=== PATIENT | male | born 1950 | race Caucasian/White ===

== ENCOUNTER → 2019-02-23 12:56 | Outpatient (CLI) | payer OTHER, SELFPAY | PROVIDERS: Visit Provider Physician Assistant | DX: R35.0 Frequency of micturition (principal) | CPT/HCPCS: 36415; G0103 ==

== ENCOUNTER 2019-05-06 16:41 | Emergency (ER) | payer OTHER, SELFPAY ==
[2019-05-06 16:45] VITALS: BP 141/90; PULSE 73; RESP 18; TEMP 36.5; O2SAT 100
[2019-05-06 17:46] LABS: Appearance Urine UA CLEAR; Bilirubin Urine UA NEGATIVE (NEGATIVE); Color Urine UA YELLOW; Glucose Urine UA NEGATIVE (Negative); Ketones Urine UA NEGATIVE (NEGATIVE); Leukocyte Esterase Urine UA TRACE (NEGATIVE); Nitrite Urine UA NEGATIVE (Negative); Occult Blood Urine UA TRACE-INTACT (Negative); Protein Urine UA NEGATIVE (Negative); Urobilinogen Urine UA 0.2 E.U./dL (0.2)
[2019-05-06 17:55] LABS: Amorphous Sediment Urine 1+; Bacteria Urine Moderate (10-30); Culture Indicated Urine Specimen Cultured; Mucus Urine 1+ (Negative); RBC Urine 0-1/HPF (0-5/HPF); Squamous Epithelial Cell Urine 0-1 /HPF (0-5/HPF); WBC Urine 10-30/HPF (0-5/HPF)
[2019-05-06 17:56] VITALS: BP 130/85; PULSE 58; RESP 16; O2SAT 100
--- NOTE | 2019-05-06 18:14 | ED_ITS ---
HPI - Male Genitourinary <RENEE Allen - Last Filed: 05/06/19 18:59> General Chief complaint: Urogenital-Male Stated complaint: DRAINED OF BLADDER Time Seen by Provider: 05/06/19 17:17 Source: patient and family Mode of arrival: ambulatory Limitations: no limitations History of Present Illness HPI Narrative: The patient is a 69-year-old male nonsmoker with history of BPH who presents with a chief complaint of acute urinary retention. He is sent from his PCP's office. He states he has not had a good urine and several days, and feels as though he is . Denies any fevers nausea vomiting or diarrhea. He denies any dysuria urgency or frequency recently. He states he is supposed to follow up with urologist. He denies any chest pain or shortness of breath. On triage the patient was bladder scanned and found to have over leader in his bladder, so a Velasquez catheter was inserted by nursing staff. Related Data Previous Rx's Medication Instructions Recorded tamsulosin 0.4 mg capsule 0.4 mg PO DAILY #90 cap 03/28/19 sulfamethoxazole-trimethoprim 1 tab PO BID #14 tab 05/06/19 Allergies Allergy/AdvReac Type Severity Reaction Status Date / Time No Known Drug Allergies Allergy Verified 05/06/19 14:44 Review of Systems <RENEE Allen - Last Filed: 05/06/19 18:59> Review of Systems GENERAL: Denies chills, fatigue, malaise, fever, sweats. HEENT: Denies sinus pain, ear pain, sore throat, difficulty swallowing, dizziness. RESPIRATORY: Denies dyspnea, cough, wheezing, hemoptysis, sputum. CARDIOVASCULAR: Denies chest pain, palpitations, orthopnea, edema, GASTROINTESTINAL: Denies nausea, vomiting, abdominal pain, diarrhea, constipation, melena. : See HPI MUSCULOSKELETAL: denies weakness, joint pain, or bony pain SKIN: Denies rash, skin lesions, or other NEUROLOGIC: Denies weakness, headache, numbness, change in speech, confusion, seizures, incoordination. PSYCHIATRIC: No concerning psychosocial issues. 12 point review of systems is negative except for those stated above PFSH <RENEE Allen - Last Filed: 05/06/19 18:59> Medical History BPH (benign prostatic hyperplasia) (Chronic) Hemorrhoid (Chronic) Skin cancer (Chronic) Skin problem (Chronic) Surgical History Anesthesia (Resolved) Knee joint replacement status (Resolved ~2012) Status post Mohs surgery (Resolved) Family History (Updated 04/29/19 @ 19:10 by Minnie Sams) Brother Lung cancer Sister Brain cancer Social History Smoking Status: Never smoker Family History Brother Lung cancer Sister Brain cancer Social History Smoking Status: Never smoker Exam <RENEE Allen - Last Filed: 05/06/19 18:59> Narrative Exam Narrative: GENERAL: This is a well-nourished, well-developed patient, no acute distress HEAD: Atraumatic. Normocephalic. No temporal or scalp tenderness. EYES: Pupils equal round and reactive. Extraocular motions intact. No scleral icterus. No injection or drainage. ENT: Nose without bleeding, purulent drainage or septal hematoma. Throat without erythema, tonsillar hypertrophy or exudate. Uvula midline. Airway patent. NECK: Trachea midline. No JVD or lymphadenopathy. Supple, nontender, no meningeal signs. CARDIOVASCULAR: Regular rate and rhythm without murmurs, gallops, or rubs. RESPIRATORY: Clear to auscultation. Breath sounds equal bilaterally. No wheezes, rales, or rhonchi. No cough. No increased respiratory effort. No accessory muscle use. GASTROINTESTINAL: Abdomen soft, non-tender, nondistended. No hepato- splenomegaly, or palpable masses. No guarding. Active bowel sounds all 4 quadrants. Velasquez catheter draining clear yellow urine. EXTREMITIES: No clubbing, cyanosis, or edema. No joint tenderness, effusion, or edema noted. BACK: Nontender without deformity or crepitance. No flank tenderness. NEURO: AOx3. SKIN: No rash or erythema. Initial Vital Signs Initial Vital Signs: Vital Signs Temperature 97.7 F 05/06/19 16:45 Pulse Rate 73 05/06/19 16:45 Respiratory Rate 18 05/06/19 16:45 Blood Pressure 141/90 H 05/06/19 16:45 Pulse Oximetry 100 05/06/19 16:45 <Charla Avelar DO - Last Filed: 05/07/19 07:51> Initial Vital Signs Initial Vital Signs: Vital Signs Temperature 97.7 F 05/06/19 16:45 Pulse Rate 73 05/06/19 16:45 Respiratory Rate 18 05/06/19 16:45 Blood Pressure 141/90 H 05/06/19 16:45 Pulse Oximetry 100 05/06/19 16:45 Course <RENEE Allen - Last Filed: 05/06/19 18:59> Orders Ordered: ED Orders 05/06/19 17:36 Urinalysis and Microscopic Stat Urine Culture Stat Vital Signs - 8 hr 05/06/19 16:45 05/06/19 17:56 Temperature 97.7 F Pulse Rate 73 58 L Respiratory Rate 18 16 Blood Pressure 141/90 H Blood Pressure [Left Arm] 130/85 Pulse Oximetry 100 100 <Charla Avelar DO - Last Filed: 05/07/19 07:51> Orders Ordered: ED Orders 05/06/19 17:36 Urinalysis and Microscopic Stat Urine Culture Stat Vital Signs - 8 hr 05/06/19 16:45 05/06/19 17:56 Temperature 97.7 F Pulse Rate 73 58 L Respiratory Rate 18 16 Blood Pressure 141/90 H Blood Pressure [Left Arm] 130/85 Pulse Oximetry 100 100 MDM - Male Genitourinary <RENEE Allen - Last Filed: 05/06/19 18:59> Lab Data Lab Results 05/06/19 Range/Units 17:36 Urine Color Yellow Urine Appearance Clear Urine pH 5.0 (4.5-8.0) Ur Specific Tillar 1.020 (1.000-1.035) Urine Protein Negative (Negative) Urine Glucose (UA) Negative (Negative) g/dL Urine Ketones Negative (NEGATIVE) Urine Occult Blood Trace-intact (Negative) Urine Nitrate Negative (Negative) Urine Bilirubin Negative (NEGATIVE) Urine Urobilinogen 0.2 (0.2) E.U./dL Ur Leukocyte Esterase Trace H (NEGATIVE) Urine RBC 0-1/hpf (0-5/HPF) Urine WBC 10-30/hpf H (0-5/HPF) Ur Squamous Epith Cells 0-1 /hpf (0-5/HPF) Amorphous Sediment 1+ Urine Bacteria Moderate (10-30) H (None) Urine Mucus 1+ H (Negative) Ur Culture Indicated? Specimen cultured MDM Narrative Medical decision making narrative: The patient is a 69-year-old male who presents with a chief complaint of acute urinary retention. A bladder scan for over 1 L. A Velasquez catheter was inserted he put out over 2 L of urine immediately. Given that the patient has had slight flank pain, I offered to do labs. The patient's declined lab work. The patient does have some leukocyte esterase and bacteria in his urine, so initiate antibiotic therapy with a pending urine culture. The patient denies any abdominal pain after his Velasquez was inserted and does not have any fever vomiting or diarrhea. He is afebrile and has no signs of systemic illness. He is nontoxic and well- appearing. Patient was given Velasquez catheter teaching. 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 The plan is to follow up with her PCP as well as urology. No questions or concerns upon discharge. Discussed coming back to the ER for any acute concerns such as and we keep down fluids. No questions or concerns upon discharge. <Charla Avelar, - Last Filed: 05/07/19 07:51> Lab Data Lab Results 05/06/19 Range/Units 17:36 Urine Color Yellow Urine Appearance Clear Urine pH 5.0 (4.5-8.0) Ur Specific Tillar 1.020 (1.000-1.035) Urine Protein Negative (Negative) Urine Glucose (UA) Negative (Negative) g/dL Urine Ketones Negative (NEGATIVE) Urine Occult Blood Trace-intact (Negative) Urine Nitrate Negative (Negative) Urine Bilirubin Negative (NEGATIVE) Urine Urobilinogen 0.2 (0.2) E.U./dL Ur Leukocyte Esterase Trace H (NEGATIVE) Urine RBC 0-1/hpf (0-5/HPF) Urine WBC 10-30/hpf H (0-5/HPF) Ur Squamous Epith Cells 0-1 /hpf (0-5/HPF) Amorphous Sediment 1+ Urine Bacteria Moderate (10-30) H (None) Urine Mucus 1+ H (Negative) Ur Culture Indicated? Specimen cultured Discharge Plan Departure Patient Disposition: Home Clinical Impression: Acute urinary retention, Acute UTI Discharge Date/Time: 05/06/19 18:22 Interventions: ED Discharge Assessment Last Done: 05/06/19 18:21 Instructions: DI for Urinary Tract Infection (UTI), DI for Urinary Retention in Men Activity Restrictions/Additional Instructions: Today you came to the emergency department for acute urinary retention. We placed a Velasquez catheter which drained over 2 L of urine immediately we have given you instructions regarding Care Velasquez catheter. Please follow up with your PCP as well as Urology as planned. We have elected to start antibiotic therapy for urinary tract infection. Please monitor for fever, inability keep down fluids and flank pain. Please come back to emergency department for any acute concerns. Prescriptions: New sulfamethoxazole-trimethoprim 800-160 mg tablet 1 tab PO BID Qty: 14 RF: 0 No Action tamsulosin 0.4 mg capsule 0.4 mg PO DAILY Qty: 90 RF: 3 Referrals: Shelbi Gamez MD [Primary Care Provider] - <Charla Avelar DO - Last Filed: 05/07/19 07:51> Cosign ED Attending Gilature Attestation: I was immediately available in the department for consultation. Documentation has been reviewed. I agree with assessment and plan.
--- NOTE | 2019-05-06 18:24 | PC.NURSE ---
Urinary catheter teaching done. Sent home with leg bag and supplies to care for these devices.
== END 2019-05-06 18:22 | disposition home or self-care (01) ==
PROVIDERS: Emergency Provider Nurse Practitioner Family; PCP Hospitalist
DX: N39.0 Urinary tract infection, site not specified (principal); R33.8 Other retention of urine
CPT/HCPCS: 51701; 81001; 87086; 99283

== ENCOUNTER → 2019-06-18 10:22 | Outpatient (CLI) | payer OTHER, SELFPAY ==
[2019-06-18 11:07] LABS: BUN Creatinine Ratio 22.9 (6-22); Blood Urea Nitrogen 16 mg/dL (9-20); Calcium 9.4 mg/dL (8.4-10.2); Carbon Dioxide 32 mmol/L (22-32); Chloride 101 mmol/L (98-107); Estimated Glomerular Filt Rate > 60.0 mL/min (>60); Glucose 95 mg/dL (80-110); HEMOLYSIS < 15 (0-50); Potassium 4.4 mmol/L (3.4-5.1); Sodium 138 mmol/L (137-145)
[2019-06-18 11:34] LABS: Prostate Specific Antigen 7.42 ng/mL (0.10-4.00)
== END ==
PROVIDERS: PCP Hospitalist; Visit Provider Urology
DX: R97.20 Elevated prostate specific antigen [PSA] (principal); R33.9 Retention of urine, unspecified
CPT/HCPCS: 36415; 80048; 84153

== ENCOUNTER → 2019-08-26 09:39 | Outpatient (CLI) | payer OTHER, SELFPAY ==
[2019-08-26 11:09] LABS: Prostate Specific Antigen 2.68 ng/mL (0.10-4.00)
== END ==
PROVIDERS: Family Provider Hospitalist; PCP Hospitalist; Visit Provider Urology
DX: R97.20 Elevated prostate specific antigen [PSA] (principal)
CPT/HCPCS: 36415; 84153

== ENCOUNTER → 2019-11-17 13:26 | Outpatient (CLI) | payer OTHER, SELFPAY ==
--- NOTE | 2019-11-17 | DI.MRI.S_ITS ---
PROCEDURE: MR FEMUR LT WO CON INDICATIONS: Strain of muscle, fascia and tendon TECHNIQUE: Noncontrast coronal and sagittal T1 spin echo and STIR; axial T1 spin echo and T2 fast spin echo with fat saturation through the left thigh. COMPARISON: None. FINDINGS: Image quality: Excellent. Bones: Mildly heterogeneous marrow signal is seen throughout bony pelvis and bilateral femur suggestive of hematopoietic marrow. No gross marrow edema. No fracture or dislocation. Bilateral hip joint osteophytic changes are seen with superior joint space narrowing and subchondral sclerosis. No evidence of avascular necrosis of femoral head. The overlying cortex appears intact. No fractures lines or intra-osseous lesions. Soft tissues: There is tendinosis/low-grade partial-thickness tear involving left gluteus medius and minimus tendons at their insertion on greater trochanter without associated muscle signal abnormality. There is full thickness rupture involving hamstring tendon origins at their insertion on ischial tuberosity with approximately 7 mm distal retraction of torn tendon fibers and moderate amount of surrounding fluid and edema. Low-grade strain/partial thickness tear involving proximal hamstring muscles are also noted near musculotendinous junction. No other muscle or tendon signal abnormality. IMPRESSION: 1. Full-thickness rupture involving hamstring tendon origins at ischial tuberosity with 7 mm distal retraction of torn tendon fibers and surrounding soft tissue edema and fluid. There is straightening/low-grade partial-thickness tear involving proximal hamstring muscles near musculotendinous junction. 2. Low-grade tendinosis/partial thickness tear involving left gluteus medius and minimus tendons at the insertion on greater trochanter. No associated muscle signal abnormality. 3. Mild bilateral hip joint osteoarthritic changes. No hip fracture or dislocation. No evidence of avascular necrosis of femoral head. Heterogeneous marrow signal throughout bony pelvis and bilateral femur likely represent hematopoietic marrow. No gross marrow edema is seen. Dictated by: Jesus Garcia M.D. on 11/18/2019 at 10:39 Approved by: Jesus Garcia M.D. on 11/18/2019 at 10:46
== END ==
PROVIDERS: Referring Provider Orthopaedic Surgery; Visit Provider Orthopaedic Surgery
DX: S76.312A Strain of muscle, fascia and tendon of the posterior muscle group at thigh level, left thigh, initial encounter (principal); X58.XXXA Exposure to other specified factors, initial encounter
CPT/HCPCS: 73718

== ENCOUNTER → 2020-10-07 09:32 | Outpatient (CLI) | payer OTHER, SELFPAY ==
[2020-10-07 11:02] LABS: Add Manual Diff / Slide Review NO; Basophils Absolute Auto 100 /uL (0-100); Basophils Percent Auto 1.2 % (0-2); Eosinophils Absolute Auto 400 /uL (0-450); Hematocrit 44.5 % (41-53); Hemoglobin 14.6 g/dL (13.5-17.5); Lymphocytes Absolute Auto 1800 /uL (1100-4500); Lymphocytes Percent Auto 33.3 % (25-40); Mean Corpuscular HGB Conc 32.7 % (30-36); Mean Corpuscular Hemoglobin 27.8 PG (26-34); Mean Corpuscular Volume 84.9 fL (80-100); Monocytes Absolute Auto 500 /uL (0-900); Neutrophils Absolute Auto 2700 /uL (1500-7000); Neutrophils Percent Auto 49.5 % (50-75); Platelet Count 235 X10^3/uL (150-400); Red Blood Cell Count 5.25 X10^6/uL (4.5-5.9); Red Cell Distribution Width 14.4 % (11.6-14.8); White Blood Cell Count 5.5 X10^3/uL (4.5-11.0)
[2020-10-07 11:13] LABS: Alanine Aminotransferase 20 IU/L (<50); Albumin 4.1 g/dL (3.5-5.0); Albumin Globulin Ratio 1.5 (1.0-2.8); Alkaline Phosphatase 75 U/L (38-126); Aspartate Aminotransferase 30 IU/L (17-59); BUN Creatinine Ratio 24.2 (6-22); Bilirubin Total 0.4 mg/dL (0.2-1.3); Blood Urea Nitrogen 15 mg/dL (9-20); Carbon Dioxide 29 mmol/L (22-32); Chloride 104 mmol/L (98-107); Cholesterol 172 mg/dL (140-199); Estimated Glomerular Filt Rate > 60.0 mL/min (>60); Globulin 2.7 g/dL (1.7-4.1); Glucose 98 mg/dL (80-110); HDL Cholesterol 68 mg/dL (40-60); HEMOLYSIS 40 (0-50); LDL Cholesterol Calculated 67 mg/dL (<100); Potassium 4.5 mmol/L (3.4-5.1); Sodium 137 mmol/L (137-145); Total Protein 6.8 g/dL (6.3-8.2); Triglycerides 184 mg/dL (35-150)
[2020-10-07 11:43] LABS: Prostate Specific Antigen Scrn 1.61 ng/mL (0.1-4.0)
[2020-10-07 11:44] LABS: TSH w/ Reflex to FT4 1.62 uIU/mL (0.47-4.68)
== END ==
PROVIDERS: PCP Family Medicine; Referring Provider Family Medicine; Visit Provider Family Medicine
DX: Z00.00 Encounter for general adult medical examination without abnormal findings (principal); N40.0 Benign prostatic hyperplasia without lower urinary tract symptoms; Z13.220 Encounter for screening for lipoid disorders; Z13.228 Encounter for screening for other metabolic disorders; Z13.29 Encounter for screening for other suspected endocrine disorder; Z90.79 Acquired absence of other genital organ(s); Z12.5 Encounter for screening for malignant neoplasm of prostate
CPT/HCPCS: 36415; 80053; 80061; 84443; 85025; G0103

== ENCOUNTER → 2020-12-02 12:24 | Outpatient (CLI) | payer OTHER, SELFPAY ==
--- NOTE | 2020-12-02 12:26 | DI.US.S_ITS ---
PROCEDURE: US RENAL COMPLETE INDICATIONS: URINARY RETENTION POST TURP 1 YEAR AGO TECHNIQUE: Real-time scanning was performed of the kidneys and bladder, with image documentation. COMPARISON: None. FINDINGS: Kidneys: Kidneys are normal in size. Right kidney measures 11.7 cm long; left kidney measures 12.1 cm long. Right renal cortical thickness is 2.4 cm; left renal cortical thickness is 1.7 cm. Renal cortical echotexture is normal. No hydronephrosis or nephrolithiasis. No suspicious solid mass lesions. Bladder: Pre-void bladder volume is 588 mL. Post-void residual is 471 mL. Pre-void images demonstrate no intraluminal masses or stones. On pre-void images, neither of the ureteral jets are noted with color Doppler interrogation. (Of note, ureteral jets may not be detectable in up to 25% of cases due to insufficient differences in specific gravity between ureteral and bladder urine). Miscellaneous: No free pelvic fluid. IMPRESSION: No hydronephrosis 471 cc postvoid residual Dictated by: David Rios M.D. on 12/02/2020 at 15:10 Approved by: David Rios M.D. on 12/02/2020 at 15:13
== END ==
PROVIDERS: PCP Family Medicine; Referring Provider Urology; Visit Provider Urology
DX: R33.9 Retention of urine, unspecified (principal)
CPT/HCPCS: 76770

== ENCOUNTER → 2021-07-29 09:36 | Outpatient (CLI) | payer OTHER, SELFPAY ==
[2021-07-29 10:17] LABS: COVID19 -Nasal RAPID Negative (Negative)
== END ==
PROVIDERS: PCP Family Medicine; Visit Provider Nurse Practitioner Family
DX: Z20.822 Contact with and (suspected) exposure to COVID-19 (principal)
CPT/HCPCS: 87635

== ENCOUNTER → 2021-08-23 14:52 | Outpatient (CLI) | payer OTHER, SELFPAY ==
[2021-08-23 15:50] LABS: COVID19 -Nasal RAPID Negative (Negative)
== END ==
PROVIDERS: PCP Family Medicine; Referring Provider Nurse Practitioner Family; Visit Provider Nurse Practitioner Family
DX: Z20.822 Contact with and (suspected) exposure to COVID-19 (principal)
CPT/HCPCS: 87635

== ENCOUNTER 2021-08-24 11:34 | Day surgery (SDC) | payer OTHER, SELFPAY ==
--- NOTE | 2021-08-24 | PATH_ITS ---
[facility] Accession Number: [id number] . 01 Material submitted: . PART A: colon - ASCENDING COLON POLYP PART B: rectum - RECTAL POLYP . 02 Diagnosis: A. Ascending Colon Polyp: Tubular adenoma. . B. Rectal Polyp: Hyperplastic polyp. MRV 08/26/2021 0914 Local . 02 Electronically signed: . Marielena Saenz MD, Pathologist NPI- [id number] . 01 Gross description: . Part A: ASCENDING COLON POLYP: Received in formalin is 1 fragment(s) of mcguire, soft tissue measuring 0.4 x 0.4 x 0.4 cm submitted entirely in 1 cassette(s) Part B: RECTAL POLYP: Received in formalin is 1 fragment(s) of mcguire, soft tissue measuring 0.4 x 0.4 x 0.3 cm submitted entirely in 1 cassette(s) /QBJ 08/25/2021 0251 Local . 02 Pathologist provided ICD-10: K63.5, Z86.010 . 02 CPT . 676586, 191563 Performed at: 01 [facility] [address], [place], [place] [id number] MD Jd Melton MD Phone: [phone] Performed at: 02 [facility] [address] [place], [place] [id number] MD Astrid Chahal MD Phone: [phone]
[2021-08-24 12:38] VITALS: BP 151/86; PULSE 65; RESP 16; TEMP 36.6; O2SAT 99; BMI 28.3
[2021-08-24] MEDS: SODIUM CHLORIDE 0.9% 1,000 ML 84 ML IV (12:57)
--- NOTE | 2021-08-24 13:46 | PM.HP.1 ---
History of Present Illness History of Present Illness Date Patient Seen: 08/24/21 Time Patient Seen: 13:46 Chief complaint: SDC Narrative: Personal history of colon polyps Patient History Medical History Basal cell carcinoma BPH (benign prostatic hyperplasia) Hemorrhoid Left hamstring injury Skin cancer Skin problem Urinary retention due to benign prostatic hyperplasia Well adult exam Surgical History Anesthesia Knee joint replacement status (~2012) S/P TURP (transurethral resection of prostate) Status post Mohs surgery Family & Social History Family History Brother Lung cancer Sister Brain cancer Social History: household members spouse Tobacco & Substance use: Smoking Status Never smoker alcohol intake frequency 0-2 drinks per day Substance Use Type does not use Meds Home Medications and Allergies Home Medications Medication Instructions Recorded Confirmed Type cetirizine 10 mg tablet (Allergy 10 mg PO DAILY PRN tab 10/07/20 08/24/21 History Relief (cetirizine)) Allergies Allergy/AdvReac Type Severity Reaction Status Date / Time No Known Drug Allergies Allergy Verified 08/24/21 12:29 Review of Systems Review of Systems ROS: Yes All systems reviewed with the patient and are negative except as otherwise documented Exam Vital Signs (past 8 hours): - 08/24/21 12:38 Temperature 97.8 F Pulse Rate 65 Respiratory Rate 16 Blood Pressure 151/86 H Pulse Oximetry 99 Oxygen Delivery Method Room Air Const General: cooperative and comfortable Orientation: alert HENMT Head: normocephalic Ears: external ears normal Nose: external nose normal Face and sinus: normal facial exam Mouth: oral mucosae normal Eyes General: appearance normal, both eyes and all related structures Neck Neck: normal visual inspection Chest Chest: normal inspection of the chest Resp Effort & Inspection: normal respiratory effort Cardio Rate: regular rate GI Inspection: normal to inspection Skin General: no rashes or lesions noted and No jaundice Neuro General: patient alert and moves all extremities Cognition: normal cognition Speech: speech normal Extrem General: no pedal edema Psych Appearance: grossly normal Assessment & Plan Assessment & Plan narrative: 71-year-old male with a personal history of colon polyps. Colonoscopy is planned for today. Time Spent With Patient Critical Care time: I spent a total of [] minutes of critical care time on this patient's care today; this time is exclusive of procedural time.
--- NOTE | 2021-08-24 13:48 | PM.PREOP ---
Pre-operative Note COVID-19 COVID-19 status: Negative Result date/Date tested (Pos, Neg/Pending): 08/23/21 Interval Note History & Physical reviewed/Exam performed by Physician: Yes Changes to H&P: No H&P completed within 30 days and has changed as indicated here:: Today ASA Class (for procedural sedation): I
--- NOTE | 2021-08-24 14:41 | P.OP.COLON_ITS ---
Operative Date/Time/Diagnoses Date of procedure: 08/24/21 Time of procedure: 14:41 Pre-op diagnosis: Polyp history Post-op diagnosis: same Procedure & Clinicians Study performed: Colonoscopy with hot snare polypectomy Same procedure as scheduled: Yes Indications: Polyp history Surgeon: Hossein Abad Procedure Notes SCOAP/Timeout: Done Procedure in detail: After the risks and benefits were explained, written and verbal informed consent was obtained. The patient was brought into the procedure room and placed into the left lateral decubitus position. Please see nurse kayaking instructor notes for sedation details. Digital rectal examination was accomplished. The scope was introduced into the patient and advanced under direct visualization to the cecum as identified by the appendiceal orifice and ileocecal valve. The scope was slowly withdrawn to carefully examine the mucosa for any defects or lesions. Comprehensive imaging was accomplished throughout the rectum including the dentate line. The colon was decompressed, the scope was then removed from the patient who tolerated the procedure well. Bowel prep adequate Adult colonoscope Scope withdrawal time: 10 minutes Sedation minutes: 17 Complications: none Impression: In the ascending colon there was an approximately 7 mm polyp removed with hot snare. In the rectum there was an approximately 6 mm polyp also removed with hot snare. No additional pathology was appreciated throughout. Patient had at least grade 2 internal hemorrhoids. Endoscopic diagnosis 1. Grade 2 hemorrhoids 2. Colon polyps Post-procedure Recommendations: Colonoscopy in 5 years Plan for aftercare: 1. Await histopathology 2. Repeat colonoscopy 5 years. Disposition: PACU
[2021-08-24 14:44] VITALS: BP 119/84; PULSE 74; RESP 13; TEMP 36.7; O2SAT 99
[2021-08-24 14:49] VITALS: BP 123/73; PULSE 71; RESP 13; O2SAT 100
[2021-08-24 14:53] VITALS: BP 135/92; PULSE 70; RESP 12; O2SAT 99
[2021-08-24 15:01] VITALS: BP 142/86; PULSE 65; RESP 13; O2SAT 98
== END 2021-08-24 15:13 | disposition home or self-care (01) ==
PROVIDERS: PCP Family Medicine; Referring Provider Internal Medicine Gastroenterology; Visit Provider Internal Medicine Gastroenterology
PROC: 0DJD8ZZ Inspection of Lower Intestinal Tract, Via Natural or Artificial Opening Endoscopic (ICD-10-PCS; CPT 45378; principal; 2021-08-24 13:30)
DX: Z12.11 Encounter for screening for malignant neoplasm of colon (principal); D12.2 Benign neoplasm of ascending colon; Z86.010 Personal history of colon polyps; K64.1 Second degree hemorrhoids; K62.1 Rectal polyp
CPT/HCPCS: 45385; J2704

== ENCOUNTER → 2022-05-13 16:13 | Outpatient (CLI) | payer OTHER, SELFPAY ==
[2022-05-13 16:31] LABS: Add Manual Diff / Slide Review NO; Basophils Absolute Auto 100 /uL (0-100); Basophils Percent Auto 0.9 % (0-2); Eosinophils Absolute Auto 200 /uL (0-450); Eosinophils Percent Auto 2.4 % (2-4); Hematocrit 41.9 % (41-53); Hemoglobin 14.2 g/dL (13.5-17.5); Lymphocytes Absolute Auto 2100 /uL (1100-4500); Lymphocytes Percent Auto 31.8 % (25-40); Mean Corpuscular HGB Conc 33.9 % (30-36); Mean Corpuscular Hemoglobin 27.8 PG (26-34); Monocytes Absolute Auto 600 /uL (0-900); Monocytes Percent Auto 9.2 % (3-14); Neutrophils Absolute Auto 3600 /uL (1500-7000); Neutrophils Percent Auto 55.7 % (50-75); Platelet Count 268 X10^3/uL (150-400); Red Cell Distribution Width 14.6 % (11.6-14.8); White Blood Cell Count 6.5 X10^3/uL (4.5-11.0)
[2022-05-13 16:42] LABS: Alanine Aminotransferase 16 IU/L (<50); Albumin Globulin Ratio 1.3 (1.0-2.8); Alkaline Phosphatase 74 U/L (38-126); Aspartate Aminotransferase 24 IU/L (17-59); BUN Creatinine Ratio 19.3 (6-22); Bilirubin Total 0.3 mg/dL (0.2-1.3); Blood Urea Nitrogen 16 mg/dL (9-20); Calcium 8.8 mg/dL (8.4-10.2); Carbon Dioxide 29 mmol/L (22-32); Chloride 105 mmol/L (98-107); Estimated Glomerular Filt Rate > 60 mL/min (>60); Globulin 3.1 g/dL (1.7-4.1); Glucose 104 mg/dL (80-110); HEMOLYSIS < 15 (0-50); Potassium 4.2 mmol/L (3.4-5.1); Sodium 138 mmol/L (137-145); Total Protein 7.1 g/dL (6.3-8.2)
[2022-05-13 17:15] LABS: TSH w/ Reflex to FT4 1.16 uIU/mL (0.47-4.68)
[2022-05-13 17:31] LABS: Vitamin B12 363 pg/mL (239-931)
== END ==
PROVIDERS: PCP Family Medicine; Referring Provider Family Medicine; Visit Provider Family Medicine
DX: R42 Dizziness and giddiness (principal)
CPT/HCPCS: 80053; 82607; 84443; 85025

== ENCOUNTER → 2022-05-17 08:16 | Outpatient (CLI) | payer OTHER, SELFPAY ==
--- NOTE | 2022-05-17 08:21 | DI.MRI.S_ITS ---
PROCEDURE: MR HEAD/BRAIN WO CON INDICATIONS: The patient has developed rather substantial ataxia without TECHNIQUE: Non-contrast axial T1 spin echo, axial T2 fast spin echo, sagittal and axial FLAIR, coronal T2 fast spin echo, axial gradient echo, axial diffusion and ADC through the brain. COMPARISON: None. FINDINGS: Image quality: Excellent. CSF spaces: Ventricles appear symmetric in size and shape. Basal cisterns are patent. No extra-axial fluid collections. Brain: No intracranial bleeds or mass effects. There is cerebral volume loss for age. There are periventricular and deep white matter chronic small vessel ischemic changes. Brainstem appears normal. Diffusion-weighted images show no acute ischemic insults. No chronic ischemic insults. Normal intravascular flow voids are present. Skull and face: Calvarial bone marrow is normal in signal. Orbits are normal. Sinuses: There is moderate mucosal thickening seen within the left maxillary sinus, with [id number] mucosal thickening elsewhere within the paranasal sinuses. No abnormal fluid is seen within the mastoid air cells. IMPRESSION: No imaging explanation is found for this patient's presenting symptoms. No findings of acute or subacute infarction can be seen. Note is made of age-appropriate brain parenchymal volume loss and chronic small vessel ischemic changes. Dictated by: Douglas Turner M.D. on 05/17/2022 at 8:45 Approved by: Douglas Turner M.D. on 05/17/2022 at 8:46
== END ==
PROVIDERS: PCP Family Medicine; Referring Provider Family Medicine; Visit Provider Family Medicine
DX: R27.0 Ataxia, unspecified (principal)
CPT/HCPCS: 70551

== ENCOUNTER → 2022-05-23 09:09 | Outpatient (CLI) | payer OTHER, SELFPAY | PROVIDERS: PCP Family Medicine; Visit Provider Nurse Practitioner Family | DX: R30.0 Dysuria (principal) | CPT/HCPCS: 87077; 87086; 87186 ==

== ENCOUNTER 2022-09-02 11:38 | Emergency (ER) | payer OTHER, SELFPAY ==
[2022-09-02 11:55] VITALS: BP 126/91; PULSE 64; RESP 16; TEMP 36.7; O2SAT 98; BMI 40.2
--- NOTE | 2022-09-02 12:23 | DI.CT.S_ITS ---
PROCEDURE: CT CERVICAL SPINE WO CON INDICATIONS: trauma TECHNIQUE: Noncontrast 3 mm thick sections acquired from the skull base to the T4 level. Sagittal and coronal reformats were then constructed. For radiation dose reduction, the following was used: automated exposure control, adjustment of mA and/or kV according to patient size. COMPARISON: None. FINDINGS: Image quality: Excellent. Bones: No fractures or dislocations. Visualized superior ribs are intact. Trace anterolisthesis of C7 on T1 secondary to bilateral facet arthropathy. Multilevel facet arthropathy. Soft tissues: Prevertebral soft tissues are normal in thickness. No paravertebral hematomas. No apical pneumothoraces. IMPRESSION: No evidence acute cervical fracture or dislocation. Cervical spondylitic change. Dictated by: Christopher Andre M.D. on 09/02/2022 at 12:59 Approved by: Christopher Andre M.D. on 09/02/2022 at 13:01
--- NOTE | 2022-09-02 12:23 | DI.RAD.S_ITS ---
PROCEDURE: XR CHEST 1V INDICATIONS: trauma TECHNIQUE: One view of the chest was acquired. COMPARISON: None. FINDINGS: Surgical changes and devices: None. Lungs and pleura: Lungs are clear. No pleural effusions or pneumothorax. Mediastinum: Mediastinal contours appear normal. Heart size is normal. Bones and chest wall: No suspicious bony lesions. Overlying soft tissues appear unremarkable. IMPRESSION: No evidence acute pulmonary process. Dictated by: Christopher Andre M.D. on 09/02/2022 at 12:49 Approved by: Christopher Andre M.D. on 09/02/2022 at 12:49
--- NOTE | 2022-09-02 12:23 | DI.CT.S_ITS ---
PROCEDURE: CT HEAD/BRAIN WO CON INDICATIONS: trauma TECHNIQUE: Noncontrast 4.5 mm thick angled axial sections acquired from the foramen magnum to the vertex, with coronal and sagittal reformats. For radiation dose reduction, the following was used: automated exposure control, adjustment of mA and/or kV according to patient size. COMPARISON: None. FINDINGS: Image quality: Excellent. CSF spaces: Basal cisterns are patent. No extra-axial fluid collections. Ventricles are normal in size and shape. Brain: No midline shift. No intracranial masses or hemorrhage. Fernandes-white matter interface is normal. Skull and face: Calvarium and visualized facial bones are intact, without suspicious lesions. Sinuses: Visualized sinuses and mastoids are clear. IMPRESSION: No evidence acute intracranial process. Dictated by: Christopher Andre M.D. on 09/02/2022 at 13:01 Approved by: Christopher Andre M.D. on 09/02/2022 at 13:02
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
== END 2022-09-02 13:21 | disposition home or self-care (01) ==
PROVIDERS: Emergency Provider Emergency Medicine; PCP Family Medicine
DX: M54.2 Cervicalgia (principal); S09.90XA Unspecified injury of head, initial encounter; V89.2XXA Person injured in unspecified motor-vehicle accident, traffic, initial encounter
CPT/HCPCS: 70450; 71045; 72125; 99281; 99284

== ENCOUNTER → 2022-09-23 14:02 | Outpatient (CLI) | payer OTHER, SELFPAY ==
--- NOTE | 2022-09-23 | DI.US.S_ITS ---
PROCEDURE: US RENAL COMPLETE INDICATIONS: URINARY RETENTION TECHNIQUE: Real-time scanning was performed of the kidneys and bladder, with image documentation. COMPARISON: [facility], , US RENAL COMPLETE, 12/02/2020, 13:04. FINDINGS: Kidneys: Kidneys are normal in size. Right kidney measures 12 cm long; left kidney measures 11.9 cm long. Right renal cortical thickness is 1.1 cm; left renal cortical thickness is 1.7 cm. Renal cortical echotexture is normal. No hydronephrosis or nephrolithiasis. No suspicious solid mass lesions. Bladder: Pre-void bladder volume is 706 mL. Post-void residual is 486 mL. Pre-void images demonstrate no intraluminal masses or stones. On pre-void images, bilateral ureteral jets are noted with color Doppler interrogation. (Of note, ureteral jets may not be detectable in up to 25% of cases due to insufficient differences in specific gravity between ureteral and bladder urine). Miscellaneous: No free pelvic fluid. IMPRESSION: 1. Grossly unremarkable appearance of the kidneys bilaterally and no hydronephrosis seen. 2. 486 cc postvoid residual. Dictated by: Chris Ferguson [facility] Interpreted: Ashish Lott MD on 09/23/2022 at 15:52 Transcribed by: SAMI on 09/23/2022 at 15:53 Approved by: Ashish Lott M.D. on 09/23/2022 at 17:53
== END ==
PROVIDERS: PCP Family Medicine; Referring Provider Physician Assistant Medical; Visit Provider Physician Assistant Medical
DX: R33.9 Retention of urine, unspecified (principal)
CPT/HCPCS: 76770

== ENCOUNTER → 2023-11-26 14:42 | Outpatient (CLI) | payer MEDICARE, SELFPAY ==
--- NOTE | 2023-11-26 14:43 | DI.RAD.S_ITS ---
PROCEDURE: XR CHEST 2V INDICATIONS: Cough and short of breath TECHNIQUE: 2 views of the chest were acquired. COMPARISON: [facility], CR, XR CHEST 1V, 09/02/2022, 12:23. FINDINGS: Surgical changes and devices: None. Lungs and pleura: Mild generalized interstitial prominence can be seen. No pleural effusions or pneumothorax. Low lung volumes are noted. This causes a crowded appearance to the lung markings and limits evaluation. Mediastinum: The cardiac contours are within normal limits. The aorta demonstrates calcification and tortuosity. Bones and chest wall: Age-appropriate bony degenerative changes are seen. Accentuated thoracic kyphosis is seen. No suspicious bony abnormalities. Soft tissues appear unremarkable. IMPRESSION: Mild generalized interstitial prominence can be seen, without cardiomegaly. Please consider pulmonary edema versus atypical infiltrate. (In this patient with low lung volumes, differential diagnosis also includes artifact.) Dictated by: Douglas Turner M.D. on 11/26/2023 at 14:09 Approved by: Douglas Turner M.D. on 11/26/2023 at 14:10
== END ==
PROVIDERS: PCP Family Medicine; Referring Provider Physician Assistant Medical; Visit Provider Physician Assistant Medical
DX: R05.9 Cough, unspecified (principal)
CPT/HCPCS: 71046

== ENCOUNTER → 2024-04-16 14:41 | Outpatient (CLI) | payer MEDICARE, SELFPAY ==
--- NOTE | 2024-04-16 14:42 | DI.RAD.S_ITS ---
PROCEDURE: XR KNEE LT 3V INDICATIONS: Left knee pain and swelling; suspect OA TECHNIQUE: 3 views of the knee were acquired. COMPARISON: None. FINDINGS: Bones: There is prior right total knee arthroplasty with anatomic right knee alignment. 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 No patellar subluxation. No suspicious bony lesions. Soft tissues: Small to moderate suprapatellar joint effusion is seen.. No suspicious soft tissue calcifications. IMPRESSION: 1. 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 Small to moderate left suprapatellar joint effusion. No fracture or dislocation. 2. Prior right total knee arthroplasty with anatomic right knee alignment. Dictated by: Jesus Garcia M.D. on 04/16/2024 at 17:50 Approved by: Jesus Garcia M.D. on 04/16/2024 at 17:51
--- NOTE | 2024-04-16 14:42 | DI.RAD.S_ITS ---
PROCEDURE: XR HIP W PEL IF DONE KELLI MIN 4V INDICATIONS: Left hip pain TECHNIQUE: AP pelvis with lateral view(s) of the bilateral hip(s). COMPARISON: None. FINDINGS: Bones: No fractures or dislocations. Xrgz-sl-kauvzgln bilateral hip joint osteoarthritic changes are seen with superior joint space narrowing and subchondral sclerosis. No evidence of avascular necrosis of femoral head. Pelvic ring appears intact. No suspicious bony lesions. Degenerative disc disease in visualized lower lumbar spine is seen. Soft tissues: The visualized bowel gas pattern is normal. No suspicious soft tissue calcifications. IMPRESSION: Pgra-oh-ewvcovwj symmetric appearing bilateral hip joint osteoarthritis. No pelvic or hip fracture. No evidence of avascular necrosis. Dictated by: Jesus Garcia M.D. on 04/16/2024 at 17:49 Approved by: Jesus Garcia M.D. on 04/16/2024 at 17:50
== END ==
PROVIDERS: PCP Family Medicine; Referring Provider Physician Assistant; Visit Provider Physician Assistant
DX: M16.0 Bilateral primary osteoarthritis of hip (principal); M17.12 Unilateral primary osteoarthritis, left knee; M25.462 Effusion, left knee; M25.562 Pain in left knee; M25.552 Pain in left hip; Z96.651 Presence of right artificial knee joint
CPT/HCPCS: 73522; 73562

== ENCOUNTER 2025-02-21 08:58 | Emergency (ER) | payer MEDICARE, SELFPAY ==
[2025-02-21] VITALS (11 sets, daily range): BP systolic 128–163; BP diastolic 71–104; PULSE 65–105; RESP 11–17; TEMP 36.6; O2SAT 96–98; BMI 28.3
--- NOTE | 2025-02-21 09:17 | DI.RAD.S_ITS ---
PROCEDURE: XR CHEST 1V INDICATIONS: Chest Pain TECHNIQUE: One view of the chest was acquired. COMPARISON: [facility], CR, XR CHEST 2V, 11/26/2023, 14:45. FINDINGS: Surgical changes and devices: None. Lungs and pleura: Lungs are clear. No pleural effusions or pneumothorax. Mediastinum: Tortuous thoracic aorta. Heart size is enlarged. Bones and chest wall: No suspicious bony lesions. Overlying soft tissues appear unremarkable. IMPRESSION: No acute cardiopulmonary pathology. Dictated by: Jesus Garcia M.D. on 02/21/2025 at 9:40 Approved by: Jesus Garcia M.D. on 02/21/2025 at 9:41
[2025-02-21 09:25] LABS: Add Manual Diff / Slide Review NO; Basophils Absolute Auto 100 /uL (0-100); Basophils Percent Auto 0.7 % (0-2); Eosinophils Absolute Auto 100 /uL (0-450); Eosinophils Percent Auto 0.9 % (2-4); Hematocrit 43.8 % (41-53); Hemoglobin 14.6 g/dL (13.5-17.5); Lymphocytes Absolute Auto 1100 /uL (1100-4500); Lymphocytes Percent Auto 11.7 % (25-40); Mean Corpuscular HGB Conc 33.2 % (30-36); Mean Corpuscular Volume 84.2 fL (80-100); Monocytes Absolute Auto 800 /uL (0-900); Monocytes Percent Auto 8.1 % (3-14); Neutrophils Absolute Auto 7500 /uL (1500-7000); Neutrophils Percent Auto 78.6 % (50-75); Platelet Count 229 X10^3/uL (150-400); Red Blood Cell Count 5.21 X10^6/uL (4.5-5.9); Red Cell Distribution Width 14.4 % (11.6-14.8); White Blood Cell Count 9.5 X10^3/uL (4.5-11.0)
[2025-02-21 09:32] LABS: Prothrombin Time 11.1 SECONDS (9.4-12.5)
[2025-02-21 09:35] LABS: PTT Partial Thromboplastin Tim 36 SECONDS (25.1-36.5)
[2025-02-21 09:37] LABS: Alanine Aminotransferase 19 IU/L (<50); Albumin 4.4 g/dL (3.5-5.0); Albumin Globulin Ratio 1.5 (1.0-2.8); Alkaline Phosphatase 67 U/L (38-126); Aspartate Aminotransferase 34 IU/L (17-59); BUN Creatinine Ratio 21.3 (6-22); Bilirubin Total 0.7 mg/dL (0.2-1.3); Blood Urea Nitrogen 16 mg/dL (9-20); Carbon Dioxide 26 mmol/L (22-32); Chloride 103 mmol/L (98-107); Creatine Kinase 155 U/L (55-170); Estimated Glomerular Filt Rate > 60 mL/min (>60); Glucose 97 mg/dL (70-99); Lipase 69 U/L (23-300); Magnesium 2.1 mg/dL (1.6-2.3); Potassium 4.6 mmol/L (3.4-5.1); Sodium 137 mmol/L (137-145); Total Protein 7.4 g/dL (6.3-8.2)
[2025-02-21 09:39] LABS: HEMOLYSIS 85 (0-50)
--- NOTE | 2025-02-21 09:46 | DI.CT.S_ITS ---
PROCEDURE: CT ANGIO HEAD AND NECK INDICATIONS: headache, dizziness, fall x 2 times already TECHNIQUE: After the administration of intravenous contrast, 1 mm thick sections acquired from the aortic arch through the [place] of [place]. 3-dimensional pviettc-pgtqvjqsp-fvvwjiteac (MIP) and/or volume rendering reformats were acquired of the central intracranial vasculature and neck separately. For radiation dose reduction, the following was used: automated exposure control, adjustment of mA and/or kV according to patient size. COMPARISON: [facility], CT, CT HEAD/BRAIN WO [facility], 02/21/2025, 10:02. FINDINGS: Image quality: Diagnostic. Cerebral CT Angiogram: Internal carotid arteries: No acute findings. Intracranial ICA are patent with no significant stenosis. No occlusion. No aneurysm. Anterior cerebral arteries: Unremarkable. No significant stenosis. No occlusion. No aneurysm. Middle cerebral arteries: Unremarkable. No significant stenosis. No occlusion. No aneurysm. Posterior cerebral arteries: Unremarkable. No significant stenosis. No occlusion. No aneurysm. Basilar artery: Unremarkable. No significant stenosis. No occlusion. No aneurysm. Vertebral arteries: Unremarkable as visualized. Dural venous sinuses: Unremarkable given phase of enhancement. Other: Large bilateral subdural hematomas with effacement of the lateral ventricles and 5 mm of midline shift to the right. Neck CT Angiogram: Internal carotid arteries: Unremarkable. No significant stenosis. No dissection or occlusion. Common carotid arteries: Unremarkable. No significant stenosis. No dissection or occlusion. External carotid arteries: Unremarkable. No occlusion. Vertebral arteries: Unremarkable. No significant stenosis. No dissection or occlusion. Aortic Arch and Mediastinum: Partially visualized aortic arch unremarkable without evidence of aneurysm. Origins of the great vessels unremarkable. Other: Arterial phase soft tissues of the neck and chest are unremarkable. IMPRESSION: Large bilateral subdural hematomas with effacement of the lateral ventricles and 5 mm of midline shift to the right. No significant intracranial arterial abnormality is seen. No significant abnormality is seen within the arteries of the neck. Comment: Subdural hematoma findings were discussed with the referring ED physician at the time of interpretation of the CT scan of the head, on 02/21/2025 at 1038 hours. Any quantitative measurements of stenosis were performed using NASCET criteria. Dictated by: Christopher Andre M.D. on 02/21/2025 at 10:45 Approved by: Christopher Andre M.D. on 02/21/2025 at 10:51
--- NOTE | 2025-02-21 09:47 | ED_ITS ---
HPI - Dizziness General Chief Complaint: Dizziness Stated Complaint: Dizziness , Clammy x 7 days Time Seen by Provider: 02/21/25 09:17 Mode of arrival: Ambulatory History of Present Illness HPI Narrative: 74-year-old gentleman history of neurogenic bladder with daily catheterization got dizzy, lightheaded, and weak this morning in his driveway after walking the dog falling into the bushes requiring over 10 minutes to gather himself before he could ambulate again. He states he thinks he lost his balance but this happened a week ago same situation but never was worked up for this. Patient denies fever, chills, chest pain, shortness of breath, leg pain, leg swelling, cough, runny nose, sore throat, nausea, vomiting, diarrhea, vision changes, or any history of stroke or mini stroke. Other than what is stated 14 point review of system is negative. Related Data Home Medications ?Medication ?Instructions ?Recorded ?Confirmed No Known Home Medications 04/16/24 0603/12 Allergies Allergy/AdvReac Type Severity Reaction Status Date / Time No Known Drug Allergies Allergy Verified 02/21/25 09:11 Review of Systems Review of Systems ROS Unobtainable: All systems reviewed & are unremarkable except as noted in HPI and below Patient History Medical History Left knee pain Ataxia Neuropathy Dizziness Basal cell carcinoma Well adult exam Urinary retention due to benign prostatic hyperplasia Left hamstring injury Skin problem Hemorrhoid Skin cancer BPH (benign prostatic hyperplasia) Surgical History S/P TURP (transurethral resection of prostate) Anesthesia Status post Mohs surgery Knee joint replacement status (~2012) Family History Brother Lung cancer Sister Brain cancer Social History household members: spouse alcohol intake frequency: 0-2 drinks per day Exam Narrative Exam Narrative: GENERAL: [74] year old patient appears stated age. Well-developed patient, in mild distress. HEAD: Atraumatic. Normocephalic. EYES: Pupils equal round and reactive. Extraocular motions intact. No scleral icterus. No injection or drainage. ENT: Nose without bleeding, purulent drainage. Throat without erythema, tonsillar hypertrophy or exudate. Airway patent. NECK: Trachea midline. Non tender CARDIOVASCULAR: Regular rate and rhythm without murmurs, gallops, or rubs. RESPIRATORY: Clear to auscultation. Breath sounds equal bilaterally. No wheezes, rales, or rhonchi. GASTROINTESTINAL: Abdomen soft, non-tender, nondistended. EXTREMITIES: No edema or joint tenderness. BACK: Nontender without deformity or crepitance. No flank tenderness. NEURO: AOx3. GCS of 15 nonfocal neuro exam bilateral upper and lower extremity 5/5 negative pronator drift rapid alternating movements osdsij-au-rytv opposite qzeb-hj-xojm test intact SKIN: No rash or erythema of visible areas Initial Vital Signs Initial Vital Signs: Vital Signs Pulse Rate 76 02/21/25 09:05 Respiratory Rate 17 02/21/25 09:05 Blood Pressure 156/104 H 02/21/25 09:05 Pulse Oximetry 97 02/21/25 09:05 Course Orders Ordered: ED Orders 02/21/25 09:15 Complete Blood Count AUTO DIFF Stat Comprehensive Metabolic Panel Stat Lipase Stat Magnesium Stat NT-proBNP (BNP-Adult 18+) Stat PTT Partial Thromboplastin Blu Stat Prothrombin Time INR Stat Troponin & CK Cardiac Panel Stat 02/21/25 09:17 XR chest 1V Stat EKG-12 Lead Stat 02/21/25 09:46 CT angio head and neck Stat CT head/brain wo con Stat Discontinued Medications Aspirin (Aspirin 81 Mg Chew Tab) 324 mg PO NOW ONE Stop: 02/21/25 09:17 Last Admin: 02/21/25 10:45 Dose: Not Given Documented By: RB Vital Signs Vital signs: Vital Signs - 8 hr 02/21/25 09:05 02/21/25 09:05 02/21/25 09:06 Temperature Pulse Rate 76 Respiratory Rate 17 Blood Pressure 156/104 H 154/84 H Pulse Oximetry 97 Oxygen Delivery Method 02/21/25 09:06 02/21/25 09:11 02/21/25 09:30 Temperature 97.8 F Pulse Rate 79 70 75 Respiratory Rate 11 L 16 11 L Blood Pressure 156/104 H Pulse Oximetry 98 97 97 Oxygen Delivery Method Room Air 02/21/25 09:31 02/21/25 09:31 Temperature Pulse Rate 75 Respiratory Rate 13 Blood Pressure 131/71 Pulse Oximetry 97 Oxygen Delivery Method MDM - Dizziness Lab Data 02/21/25 09:15 02/21/25 09:15 Labs: Lab Results 02/21/25 Range/Units 09:15 WBC 9.5 (4.5-11.0) X10^3/uL RBC 5.21 (4.5-5.9) X10^6/uL Hgb 14.6 (13.5-17.5) g/dL Hct 43.8 (41-53) % MCV 84.2 (80-100) fL MCH 28.0 (26-34) PG MCHC 33.2 (30-36) % RDW 14.4 (11.6-14.8) % Plt Count 229 (150-400) X10^3/uL Neut % (Auto) 78.6 H (50-75) % Lymph % (Auto) 11.7 L (25-40) % [place] % (Auto) 8.1 (3-14) % Eos % (Auto) 0.9 L (2-4) % Baso % (Auto) 0.7 (0-2) % Neut # (Auto) 7500 H (7915-4248) /uL Lymph # (Auto) 1100 (3342-9923) /uL [place] # (Auto) 800 (0-900) /uL Eos # (Auto) 100 (0-450) /uL Baso # (Auto) 100 (0-100) /uL PT 11.1 (9.4-12.5) SECONDS INR 1.0 (0.9-1.3) APTT 36 (25.1-36.5) SECONDS Sodium 137 (137-145) mmol/L Potassium 4.6 (3.4-5.1) mmol/L Chloride 103 (98-107) mmol/L Carbon Dioxide 26 (22-32) mmol/L BUN 16 (9-20) mg/dL Creatinine 0.75 (0.66-1.25) mg/dL Estimated GFR > 60 (>60) mL/min BUN/Creatinine Ratio 21.3 (6-22) Glucose 97 (70-99) mg/dL Calcium 9.0 (8.4-10.2) mg/dL Magnesium 2.1 (1.6-2.3) mg/dL Total Bilirubin 0.7 (0.2-1.3) mg/dL AST 34 (17-59) IU/L ALT 19 (<50) IU/L Alkaline Phosphatase 67 (38-126) U/L Total Creatine Kinase 155 (55-170) U/L Troponin I < 0.012 (0.01-0.034) ng/mL NT-Pro-B Natriuret Pep 106 (<125) pg/mL Total Protein 7.4 (6.3-8.2) g/dL Albumin 4.4 (3.5-5.0) g/dL Globulin 3.0 (1.7-4.1) g/dL Albumin/Globulin Ratio 1.5 (1.0-2.8) Lipase 69 (23-300) U/L Urine Dip Bedside Urine Glucose Negative Bedside Urine Bilirubin - Negative Bedside Urine Ketone - Negative Urine Specific [place] 1.005 Bedside Urine Occult Blood - Negative Bedside Urine pH 6.0 Bedside Urine Protein - Negative Bedside Urine Urobilinogen - Negative Bedside Urine Nitrite - Negative Bedside Urine Leukocytes + 70 Esterase Imaging Data Chest x-ray: Radiologist's Impression: [address] [address] XRay Report Signed Patient: Nas Bender MR#: [id number] : 1950 Acct:[id number] Age/Sex: 74 / M Date of Service: 02/21/25 Loc: ED Accession Number: [id number] Procedure: XR chest 1V Ordering Provider: Kayode Allen D.O. PROCEDURE: XR CHEST 1V INDICATIONS: Chest Pain TECHNIQUE: One view of the chest was acquired. COMPARISON: [facility], , XR CHEST 2V, 11/26/2023, 14:45. FINDINGS: Surgical changes and devices: None. Lungs and pleura: Lungs are clear. No pleural effusions or pneumothorax. Mediastinum: Tortuous thoracic aorta. Heart size is enlarged. Bones and chest wall: No suspicious bony lesions. Overlying soft tissues appear unremarkable. IMPRESSION: No acute cardiopulmonary pathology. Dictated by: Jesus Garcia M.D. on 02/21/2025 at 9:40 Approved by: Jesus Garcia M.D. on 02/21/2025 at 9:41 CT scan - head: Radiologist's Impression: [address] [address] [address] Scan Report Signed Patient: Nas Bender MR#: [id number] : 1950 Acct:[id number] Age/Sex: 74 / M Date of Service: 02/21/25 Loc: ED Accession Number: [id number] Procedure: CT head/brain wo con Ordering Provider: Kayode Allen D.O. PROCEDURE: CT HEAD/BRAIN WO CON INDICATIONS: headache, dizziness, fall x 2 times already TECHNIQUE: Noncontrast 4.5 mm thick angled axial sections acquired from the foramen magnum to the vertex, with coronal and sagittal reformats. For radiation dose reduction, the following was used: automated exposure control, adjustment of mA and/or kV according to patient size. COMPARISON: [facility], CT, CT HEAD/BRAIN WO CON, 09/02/2022, 12:39. FINDINGS: Image quality: Diagnostic. CSF spaces: Basal cisterns are patent. Large bilateral subdural hematomas. The contents of the subdurals are slightly hyperdense compared to brain parenchyma suggesting subacuity. There is 5 mm midline shift to the right. When compared to the prior study, there is effacement of the lateral ventricles bilaterally. Brain: Large bilateral subdural hematomas, likely subacute, or potentially acute if the patient is anemic. The subdural hemorrhage extends all the way from the frontal region to the parietal regions bilaterally on coronal image 18 of series 7, the thickness of the left subdural is 1.4 cm in the thickness of the right subdural is 1.2 cm. On image 20 of series 7, midline shift measures 0.5 cm. Underlying brain volume is normal without significant small vessel ischemic change identified. There is intracranial internal carotid artery atherosclerosis. Skull and face: Calvarium and visualized facial bones appear intact, without suspicious lesions. Sinuses: Visualized sinuses and mastoids are clear. IMPRESSION: Large bilateral subdural hematomas, either subacute or acute if the patient is anemic. Resultant effacement of the bilateral lateral ventricles and 5 mm of midline shift. Comment: Findings were discussed with Dr. Allen on 02/21/2025 at 1038 hours ECG Data Interpretation: SR wtih PVC RBBB HR 68 QRS [address]-t t wave change No previous ekg MDM Narrative Medical decision making narrative: All lab work vital signs nurse triage note medication list previous ER visits and all imaging studies reviewed. GCS 15 nonfocal neuro exam. CTA head and neck shows large bilateral subdural hematoma with effacement of the lateral ventricles and 5 mm midline shift to the right. Chest x-ray did not show any acute process. INR was 1.0. Troponin 1st set was normal, EKG shows sinus rhythm with occasional PVC right bundle branch block heart rate of [address]-T wave change. Differential diagnosis includes PE CVA TIA subdural brain mass pneumothorax aneurysm STEMI NSTEMI fracture dislocation. Case discussed with Dr.Sveum CHRISSY ARNDT at [place] who has graciously accepted patient for transfer with neurosurgery consult pending. Critical care time 30 minutes Discharge Plan Departure Patient Disposition: [facility] Clinical Impression: Acute subdural hematoma Prescriptions: No Action No Known Home Medications Referrals: Librado Melgoza DO [Primary Care Provider, Family Practice]
[2025-02-21 09:48] LABS: NT-proBNP (BNP-Adult 18+) 106 pg/mL (<125); Troponin I < 0.012 ng/mL (0.01-0.034)
--- NOTE | 2025-02-21 10:17 | EKG_ITS ---
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
== END 2025-02-21 12:23 | disposition short-term general hospital (02) ==
PROVIDERS: Emergency Provider Family Medicine; PCP Family Medicine
DX: S06.5XAA Traumatic subdural hemorrhage with loss of consciousness status unknown, initial encounter (principal); R07.9 Chest pain, unspecified; I45.10 Unspecified right bundle-branch block; W18.30XA Fall on same level, unspecified, initial encounter
CPT/HCPCS: 36415; 70450; 70496; 70498; 71045; 80053; 81003; 82550; 83690; 83735; 83880; 84484; 85025; 85610; 85730; 93005; 99284; 99291; Q9967

== ENCOUNTER → 2025-03-06 10:23 | Outpatient (CLI) | payer MEDICARE, OTHER, SELFPAY ==
[2025-03-06 11:36] LABS: Hemoglobin 13.8 g/dL (13.5-17.5); Mean Corpuscular HGB Conc 32.8 % (30-36); Mean Corpuscular Hemoglobin 27.8 PG (26-34); Mean Corpuscular Volume 84.7 fL (80-100); Platelet Count 324 X10^3/uL (150-400); Red Blood Cell Count 4.96 X10^6/uL (4.5-5.9); White Blood Cell Count 6.2 X10^3/uL (4.5-11.0)
[2025-03-06 12:12] LABS: HEMOLYSIS < 15 (0-50)
[2025-03-06 12:17] LABS: Hemoglobin A1C% w Est Avg Glu 5.4 % (4.0-6.0)
[2025-03-06 12:19] LABS: Bilirubin Total 0.4 mg/dL (0.2-1.3); Blood Urea Nitrogen 15 mg/dL (9-20); Carbon Dioxide 30 mmol/L (22-32); Cholesterol 131 mg/dL (140-199)
[2025-03-06 12:20] LABS: Alanine Aminotransferase 22 IU/L (<50); Albumin Globulin Ratio 1.6 (1.0-2.8); Alkaline Phosphatase 90 U/L (38-126); Aspartate Aminotransferase 24 IU/L (17-59); BUN Creatinine Ratio 21.7 (6-22); Calcium 9.1 mg/dL (8.4-10.2); Chloride 102 mmol/L (98-107); Estimated Glomerular Filt Rate > 60 mL/min (>60); Globulin 2.5 g/dL (1.7-4.1); Glucose 90 mg/dL (70-99); HDL Cholesterol 63 mg/dL (40-60); LDL Cholesterol Calculated 37 mg/dL (<100); Sodium 137 mmol/L (137-145); Total Protein 6.5 g/dL (6.3-8.2); Triglycerides 156 mg/dL (35-150)
[2025-03-06 12:50] LABS: TSH w/ Reflex to FT4 1.36 uIU/mL (0.47-4.68)
[2025-03-06 13:09] LABS: Vitamin B12 Reflex MMA if <400 294 pg/mL (239-931)
== END ==
LOC: LAB 10:25
PROVIDERS: PCP Internal Medicine; Referring Provider Internal Medicine; Visit Provider Internal Medicine
DX: E53.8 Deficiency of other specified B group vitamins (principal); R73.01 Impaired fasting glucose; E78.2 Mixed hyperlipidemia; S06.5XAA Traumatic subdural hemorrhage with loss of consciousness status unknown, initial encounter; R77.9 Abnormality of plasma protein, unspecified
CPT/HCPCS: 36415; 80053; 80061; 82607; 83036; 83921; 84155; 84165; 84443; 85027

== ENCOUNTER → 2025-03-31 11:01 | Outpatient (CLI) | payer MEDICARE, OTHER, SELFPAY ==
--- NOTE | 2025-03-31 11:02 | DI.CT.S_ITS ---
PROCEDURE: CT HEAD/BRAIN WO CON INDICATIONS: followup [facility] TECHNIQUE: Noncontrast 4.5 mm thick angled axial sections acquired from the foramen magnum to the vertex, with coronal and sagittal reformats. For radiation dose reduction, the following was used: automated exposure control, adjustment of mA and/or kV according to patient size. COMPARISON: [facility], CT, CT HEAD/BRAIN WO CON, 02/21/2025, 10:02. [facility], CT, CT ANGIO HEAD AND NECK, 02/21/2025, 10:02. [facility], CT, CT HEAD/BRAIN WO CON, 09/02/2022, 12:39. FINDINGS: Image quality: Diagnostic. CSF spaces: Basal cisterns are patent. No extra-axial fluid collections. The ventricles are symmetric in size and shape. Brain: On the left side, there remains a moderate subdural hemorrhage, with a maximum thickness of 15 mm, as measured on coronal imaging. This overall is slightly increased in maximal thickness compared to the prior. However, the total volume of left- sided subdural hemorrhage is clearly improved compared to the prior The majority of the left-sided subdural hemorrhage demonstrates low density, with a few high density components. On the right, there is minimal residual subdural hemorrhage, measuring up to 6 mm in thickness. Mild associated midline shift is seen, measuring 4-5 mm from left to right. There is cerebral volume loss, with resultant ventricular and sulcal prominence. There are periventricular and deep white matter chronic small vessel ischemic changes. There is intracranial internal carotid artery atherosclerosis. Skull and face: Interval placement of bilateral oliver holes can be seen. On the left, radiopaque glue can be seen within the meningeal arteries. Calvarium and visualized facial bones appear intact, without suspicious lesions. Sinuses: Visualized sinuses and mastoids are clear. IMPRESSION: Interval placement of bilateral oliver holes, with overall decreased volume of the subdural hemorrhage on both sides, with the right-sided subdural hematoma nearly resolved. On the left, there are a few high density components. There is a mild degree left to right midline shift. Please consider short-term follow-up. Interval posttreatment changes of left-sided meningeal artery glue embolization. Note: Findings and recommendations discussed by telephone with Dr. Bearden at 5:26 p.m. Mckenzie time on March 31, 2025. Dictated by: Douglas Turner M.D. on 03/31/2025 at 16:14 Approved by: Douglas Turner M.D. on 03/31/2025 at 16:27
== END ==
PROVIDERS: PCP Internal Medicine; Referring Provider Internal Medicine; Visit Provider Internal Medicine
DX: S06.5XAA Traumatic subdural hemorrhage with loss of consciousness status unknown, initial encounter (principal)
CPT/HCPCS: 70450

== ENCOUNTER → 2025-07-31 15:51 | Outpatient (CLI) | payer MEDICARE, OTHER, SELFPAY ==
[2025-07-31 16:59] LABS: Blood Urea Nitrogen 22 mg/dL (9-20); Calcium 9.2 mg/dL (8.4-10.2); Carbon Dioxide 27 mmol/L (22-32); Chloride 105 mmol/L (98-107); Cholesterol 119 mg/dL (140-199); Estimated Glomerular Filt Rate > 60 mL/min (>60); Glucose 102 mg/dL (70-99); HDL Cholesterol 65 mg/dL (40-60); HEMOLYSIS < 15 (0-50); Potassium 4.1 mmol/L (3.4-5.1); Sodium 139 mmol/L (137-145); Triglycerides 211 mg/dL (35-150)
[2025-07-31 17:30] LABS: Prostate Specific Antigen 2.08 ng/mL (0.10-4.00)
[2025-07-31 17:51] LABS: Vitamin B12 685 pg/mL (239-931)
== END ==
PROVIDERS: PCP Internal Medicine; Referring Provider Internal Medicine; Visit Provider Internal Medicine
DX: E53.8 Deficiency of other specified B group vitamins (principal); E78.2 Mixed hyperlipidemia; N40.1 Benign prostatic hyperplasia with lower urinary tract symptoms; N13.8 Other obstructive and reflux uropathy
CPT/HCPCS: 36415; 80048; 80061; 82607; 84153; 84450